=== PATIENT | male | born 1975 | race Caucasian/White ===

== ENCOUNTER 2017-05-17 12:40 | Outpatient (CLI) | payer BC | END 2017-05-17 12:41 | disposition short-term general hospital (02) | LOC: EMS 12:40 | PROVIDERS: ATTEND Surgery | DX: I46.9 Cardiac arrest, cause unspecified (principal) | CPT/HCPCS: A0425; A0433 ==

== ENCOUNTER 2017-06-07 17:41 | Outpatient (CLI) | payer BC | END 2017-06-07 17:42 | disposition short-term general hospital (02) | LOC: EMS 17:41 | PROVIDERS: ATTEND Surgery | DX: R42 Dizziness and giddiness (principal); R11.0 Nausea; R07.9 Chest pain, unspecified | CPT/HCPCS: A0425; A0427 ==

== ENCOUNTER 2017-09-03 09:39 | Outpatient (CLI) | payer BC | END 2017-09-03 09:40 | disposition home or self-care (01) | LOC: SC 09:39 | PROVIDERS: ATTEND Internal Medicine Pulmonary Disease | DX: G47.30 Sleep apnea, unspecified (principal); G47.10 Hypersomnia, unspecified; R06.83 Snoring | CPT/HCPCS: 99203; 99212 ==